=== PATIENT | male | born 1965 | race Caucasian/White ===

== ENCOUNTER 2023-07-22 06:10 | Emergency (ER) | payer OTHER, SELFPAY ==
[2023-07-22 06:29] VITALS: BP 129/87
--- NOTE | 2023-07-22 07:40 | ED.GENMED ---
History of Present Illness
General
Chief Complaint: Skin Surface Trauma
Time Seen by Provider: 07/22/23 07:07
Travel History
Have you had any contact with someone who has COVID-19?: No
Do you have any symptoms of coronavirus? Fever > 100 degrees, chills, cough, shortness of breath, sore throat, loss of taste or smell, muscle aches, or headache?: No
History of Present Illness
History of Present Illness:
58 yo male presents for evaluation of L index and middle finger lacerations sustained while cutting with knives this AM. Bleeding controlled with pressure. Not on OAC. Last tetanus unknown.
Past History
Past History
ED Past Medical History: None
Social History
Living: with family
Employment: Employed
Review of Systems
Review of Systems
Allergies reviewed?: Yes
All Other Systems: ROS reviewed and negative except as documented in HPI and ROS
Phy Exam
Physical Exam
Physical Exam:
GEN: Well appearing, NAD, WDWN
HEENT: Oral mucosa moist, no scleral icterus
Cardiac: Regular rate
Lung: No respiratory distress, no tachypnea
MSK: No gross deformity or injuries
Skin: Good color. Small subcentimeter flap laceration to L index finger volar DIP joint. Normal ROM. Superficial non bleeding laceration to L middle finger middle phalanx.
Neuro: AO x3, moves all extremities freely
Psych: Calm, cooperative
Course
Orders/Labs/Results
Orders:
Orders
07/22/23 06:55
Tetanus/Diphth/Acelpertussis [Adacel] 0.5 ml IM .ONCE ONE
Vital Signs
Initial and Last Documented VS:
Initial Vital Signs
Temp Pulse Resp BP Pulse Ox
98.6 F 82 20 129/87 96
07/22/23 06:29 07/22/23 06:29 07/22/23 06:29 07/22/23 06:29 07/22/23 06:29
Last Documented Vital Signs
Temp Pulse Resp BP Pulse Ox
98.6 F 82 20 129/87 96
07/22/23 06:29 07/22/23 06:29 07/22/23 06:29 07/22/23 06:29 07/22/23 06:29
MDM/Problems Addressed
MDM/Problems Addressed:
Wounds irrigated, neither wound requires primary closure. Placed surgicel bandage to index finger for hemostasis
*Critical Care Note
Total Time (30-74mins, 75-104mins- exclusive of procedures): Not Applicable
ED Attending Note
-
Portions of this chart may have been created with voice recognition software.� Occasional wrong word or��sound alike� substitutions may have occurred due to the inherent limitations of voice recognition software.
Discharge Plan
Departure
Patient Disposition: Home (Routine Discharge)
Date of Disposition: 07/22/23
Time of Disposition: 07:40
Patient with high blood pressure during this ER visit?: No
Discharge Problem:
Laceration of left index finger
Instructions: Wound Care (DC)
Activity Restrictions/Additional Instructions:
Keep wound dry for next 24 hours if possible
The Surgi-Marah bandage is absorbable, and will take several days to fully break down
In some cases the bandage will fall off during a dressing change; this is fine as long as the wound does not bleed again
If bleeding resumes, hold pressure for 15-20 minutes
Interventions
Interventions:
*Risk Screen - Suicide Last Done: 07/22/23 06:29
*General Assessment Last Done: 07/22/23 06:29
*Neglect/Abuse Screening Last Done: 07/22/23 06:29
ED- Fall Risk Assessment Last Done: 07/22/23 06:29
*ED COVID-19 Vaccine History Last Done: 07/22/23 06:29
ED-Skin Assessment Last Done: 07/22/23 07:19
[2023-07-22] MEDS: ADACEL 0.5 ML IM (07:44)
== END 2023-07-22 07:56 | disposition home or self-care (01) ==
LOC: EMR 06:10
PROVIDERS: EMERGENCY PHYSICIAN Emergency Medicine
DX: S61.211A Laceration without foreign body of left index finger without damage to nail, initial encounter (principal); S61.213A Laceration without foreign body of left middle finger without damage to nail, initial encounter; W26.0XXA Contact with knife, initial encounter; Z23 Encounter for immunization
CPT/HCPCS: 99282; 90471; 90715

== ENCOUNTER → 2023-10-04 09:49 | Outpatient (REF) | payer OTHER, SELFPAY | LOC: RCS 09:49 | PROVIDERS: ATTENDING PHYSICIAN Internal Medicine Cardiovascular Disease; FAMILY PHYSICIAN Nurse Practitioner Adult Health | DX: I25.10 Atherosclerotic heart disease of native coronary artery without angina pectoris (principal) | CPT/HCPCS: 93017; 93350; Q9957 ==